=== PATIENT | male | born 1970 | race African-American/Black ===

== ENCOUNTER 2020-02-02 19:06 | Emergency (ER) | payer MEDICAID ==
[~2020-02-02] VITALS: Ht 170.2 cm; Wt 90.9 kg
[2020-02-02 19:10] VITALS: BP 118/78
[2020-02-02 20:00] LABS: ANION GAP 14 mmol/L (8-16); CARBON DIOXIDE 19 mmol/L (22-29); CHLORIDE 111 mmol/L (98-107); CREATININE 0.72 mg/dL (0.60-1.30); GLOMERULAR FILTR. RATE CALC > 60 mL/min (>60); GLUCOSE,RANDOM 94 mg/dL (70-110); POTASSIUM 3.6 mmol/L (3.5-5.1); SODIUM SERUM 144 mmol/L (136-145); UREA NITROGEN, BLOOD 8 mg/dL (7-18)
[2020-02-02 20:06] LABS: BASOPHILS % (AUTO) 0.6 % (0.0-2.0); EOSINOPHILS % (AUTO) 2.6 % (1.0-6.0); HEMATOCRIT 47.5 % (41-53); HEMOGLOBIN 16.4 g/dL (13.5-17.5); LYMPHOCYTES # (AUTO) 1.2 K/uL (1.0-4.8); MEAN CORPUSCULAR HEMOGLOBIN 34.4 pg (26.0-34.0); MEAN CORPUSCULAR HGB CONC 34.5 G/dL (31.0-37.0); MEAN CORPUSCULAR VOLUME 100 fL (80-100); MONOCYTES # (AUTO) 0.4 K/uL (0.1-1.0); MONOCYTES % (AUTO) 7.5 % (2.0-9.0); NEUTROPHILS % (AUTO) 69.3 % (40.0-70.0); RED BLOOD CELL COUNT(AUTO) 4.75 MIL/uL (4.50-5.90); RED CELL DISTRIBUTION WIDTH 16.8 % (11.5-14.5)
[2020-02-02 20:07] LABS: ALANINE AMINOTRANSFERASE 81 U/L (12-78); ALBUMIN 3.5 g/dL (3.4-5.0); ALKALINE PHOSPHATASE 165 U/L (46-116); ASPARTATE AMINOTRANSFERASE 97 U/L (15-37); BILIRUBIN,TOTAL 3.1 mg/dL (0.1-1.0); TOTAL PROTEIN, SERUM 9.1 g/dL (6.4-8.2)
[2020-02-02 21:25] LABS: PLATELET COUNT (AUTO) 64 K/uL (150-450)
== END 2020-02-03 00:43 | disposition left against medical advice (07) ==
LOC: EMS 19:06
DX: F10.129 Alcohol abuse with intoxication, unspecified (principal); Z53.21 Procedure and treatment not carried out due to patient leaving prior to being seen by health care provider
CPT/HCPCS: 36415; 80053; 85025; G0480

== ENCOUNTER 2021-02-15 09:00 | Inpatient (IN) | payer MEDICAID ==
[~2021-02-15] VITALS: Ht 170.2 cm; Wt 70.8 kg
[2021-02-15 10:34] LABS: BASOPHILS % (AUTO) 0.5 % (0.0-2.0); EOSINOPHILS % (AUTO) 2.3 % (1.0-6.0); HEMATOCRIT 30.7 % (41-53); HEMOGLOBIN 10.5 g/dL (13.5-17.5); LYMPHOCYTES # (AUTO) 0.7 K/uL (1.0-4.8); LYMPHOCYTES % (AUTO) 15.8 % (22.0-44.0); MEAN CORPUSCULAR HEMOGLOBIN 31.3 pg (26.0-34.0); MEAN CORPUSCULAR HGB CONC 34.1 G/dL (31.0-37.0); MEAN CORPUSCULAR VOLUME 92 fL (80-100); MONOCYTES # (AUTO) 0.4 K/uL (0.1-1.0); MONOCYTES % (AUTO) 9.8 % (2.0-9.0); NEUTROPHILS % (AUTO) 71.6 % (40.0-70.0); RED BLOOD CELL COUNT(AUTO) 3.35 MIL/uL (4.50-5.90); RED CELL DISTRIBUTION WIDTH 16.6 % (11.5-14.5)
[2021-02-15 10:47] LABS: ANION GAP 10 mmol/L (8-16); CALCIUM, TOTAL 8.3 mg/dL (8.8-10.5); CARBON DIOXIDE 22 mmol/L (22-29); CHLORIDE 103 mmol/L (98-107); CREATININE 0.75 mg/dL (0.60-1.30); GLOMERULAR FILTR. RATE CALC > 60 mL/min (>60); GLUCOSE,RANDOM 83 mg/dL (70-110); POTASSIUM 3.6 mmol/L (3.5-5.1); SODIUM SERUM 135 mmol/L (136-145); UREA NITROGEN, BLOOD 8 mg/dL (7-18)
[2021-02-15 10:52] LABS: ALANINE AMINOTRANSFERASE 44 U/L (12-78); ALBUMIN 2.4 g/dL (3.4-5.0); ALKALINE PHOSPHATASE 121 U/L (46-116); ASPARTATE AMINOTRANSFERASE 73 U/L (15-37); BILIRUBIN,TOTAL 2.8 mg/dL (0.1-1.0); TOTAL PROTEIN, SERUM 7.5 g/dL (6.4-8.2)
[2021-02-15 10:53] LABS: PLATELET COUNT (AUTO) 62 K/uL (150-450)
[2021-02-15 13:43] LABS: COVID AG,FIA SOURCE NASOPHARYNGEAL
[2021-02-15] MEDS ORDERED: LORazepam 2 MG TABLET PO PRN (15:45)
[2021-02-15] MEDS ORDERED: BACITRACIN 0.9 GM PACKET OINTMENT TP ONE (16:00)
[2021-02-15 20:45] VITALS: BP 130/79
[2021-02-15] MEDS ORDERED: PNEUMOCOCCAL VACCINE POLYVALENT 0.5 ML VIAL [PPSV23] IM. ONE (22:00)
[2021-02-15] MEDS: ZOLPIDEM TARTRATE 10 MG TABLET PO PRN (22:15)
[2021-02-15] MEDS: HALOPERIDOL 5 MG TABLET PO PRN (22:15)
[2021-02-16 05:44] VITALS: BP 110/68
[2021-02-16] MEDS ORDERED: PETROLATUM,WHITE 28 GM JELLY TP PRN (08:45)
[2021-02-16] MEDS ORDERED: NICOTINE 14 MG/24 HOUR PATCH TD PRN (08:45)
[2021-02-16] MEDS ORDERED: CloNIDine HCL 0.1 MG TABLET PO PRN (08:45)
[2021-02-16] MEDS ORDERED: GuaiFENesin/D-METHORPHAN [SUGAR-FREE] 200-20MG/10 ML SYRUP UDCUP PO PRN (08:45)
[2021-02-16] MEDS ORDERED: LOPERAMIDE HCL 2 MG CAPSULE PO PRN (08:45)
[2021-02-16] MEDS ORDERED: IBUPROFEN 400 MG TABLET PO PRN (08:45)
[2021-02-16] MEDS ORDERED: MAGNESIUM HYDROXIDE SUSPENSION 30 ML UDCUP PO PRN (08:45)
[2021-02-16] MEDS ORDERED: ACETAMINOPHEN 325 MG TABLET PO PRN (08:45)
[2021-02-16] MEDS ORDERED: DOCUSATE SODIUM 100 MG CAPSULE PO PRN (08:45)
[2021-02-16] MEDS ORDERED: ONDANSETRON HCL 4 MG TABLET PO PRN (08:45)
[2021-02-16] MEDS ORDERED: MAG HYDROX/AL HYDROX/SIMETH ES 30 ML SUSPENSION UDCUP PO PRN (08:45)
[2021-02-16] MEDS ORDERED: ALBUTEROL SULFATE HFA 90 MCG/PUFF 8 GM INHALER IH PRN (08:45)
[2021-02-16 09:57] VITALS: BP 121/70
[2021-02-16] MEDS ORDERED: CYANOCOBALAMIN 1,000 MCG/ML VIAL IM ONE (11:30)
[2021-02-16] MEDS ORDERED: LORazepam 2 MG TABLET PO PRN (11:30)
[2021-02-16 12:25] VITALS: BP 132/60
[2021-02-16] MEDS: FOLIC ACID 1 MG TABLET PO SCH (12:46)
[2021-02-16] MEDS: MULTIVITAMINS WITH MINERALS, THERAPEUTIC TABLET PO SCH (12:46)
[2021-02-16 13:30] VITALS: BP 119/75
[2021-02-16] MEDS ORDERED: TraMADol HCL 50 MG TABLET PO PRN (15:00)
[2021-02-16 16:35] VITALS: BP 98/55
[2021-02-16] MEDS: THIAMINE 100 MG TABLET PO SCH (17:05)
[2021-02-16] MEDS: ZOLPIDEM TARTRATE 10 MG TABLET PO PRN (20:27)
[2021-02-16] MEDS ORDERED: TiZANidine HCL 4 MG TABLET PO SCH (21:00)
[2021-02-16] MEDS: BACITRACIN 28 GM OINTMENT TP SCH (21:31)
[2021-02-17 05:18] VITALS: BP 118/67
[2021-02-17] MEDS ORDERED: LORazepam 2 MG TABLET PO PRN (07:00)
[2021-02-17 08:19] VITALS: BP 117/68
[2021-02-17 08:20] VITALS: BP 117/68
[2021-02-17] MEDS: FOLIC ACID 1 MG TABLET PO SCH (08:41)
[2021-02-17] MEDS: THIAMINE 100 MG TABLET PO SCH ×2 (08:41→16:51)
[2021-02-17] MEDS: LORazepam 2 MG TABLET PO SCH ×4 (08:41→20:12)
[2021-02-17] MEDS: BACITRACIN 28 GM OINTMENT TP SCH ×2 (08:41→16:51)
[2021-02-17] MEDS: MULTIVITAMINS WITH MINERALS, THERAPEUTIC TABLET PO SCH (08:41)
[2021-02-17 20:30] VITALS: BP 121/79
[2021-02-17] MEDS: HALOPERIDOL 5 MG TABLET PO PRN (20:38)
[2021-02-18 06:00] VITALS: BP 102/56
[2021-02-18 06:19] VITALS: BP 102/56
[2021-02-18 08:02] LABS: CHOL/HDL RATIO 1.6 (4.2-7.3); CHOLESTEROL 76 mg/dL (131-200); FREE T4 (FREE THYROXINE) 1.51 ng/dL (0.76-1.46); HDL CHOLESTEROL 47 mg/dL (40-60); THYROID STIMULATING HORMONE 3.02 uIU/mL (0.36-3.74)
[2021-02-18 08:15] LABS: LDL CHOL (CALC.) 26 mg/dL (0-130); TRIGLYCERIDES < 15 mg/dL (15-150)
[2021-02-18 08:27] VITALS: BP 102/67
[2021-02-18] MEDS: MULTIVITAMINS WITH MINERALS, THERAPEUTIC TABLET PO SCH (09:14)
[2021-02-18] MEDS: LORazepam 2 MG TABLET PO SCH ×2 (09:14→13:00)
[2021-02-18] MEDS: THIAMINE 100 MG TABLET PO SCH (09:14)
[2021-02-18] MEDS: FOLIC ACID 1 MG TABLET PO SCH (09:14)
[2021-02-18] MEDS: BACITRACIN 28 GM OINTMENT TP SCH (10:09)
[2021-02-18] MEDS ORDERED: FERROUS SULFATE 325 MG EC TABLET PO SCH (11:30)
[2021-02-19] MEDS ORDERED: LORazepam 1 MG TABLET PO PRN (07:00)
[2021-02-19] MEDS ORDERED: LORazepam 1 MG TABLET PO SCH (09:00)
[2021-02-20] MEDS ORDERED: LORazepam 1 MG TABLET PO PRN (07:00)
== END 2021-02-18 13:29 | disposition home or self-care (01) | DRG 751 ==
LOC: EMS 09:00 → B2S 14:44
DX: F29 Unspecified psychosis not due to a substance or known physiological condition (principal); D61.818 Other pancytopenia; C22.9 Malignant neoplasm of liver, not specified as primary or secondary; E44.0 Moderate protein-calorie malnutrition; R45.851 Suicidal ideations; E87.1 Hypo-osmolality and hyponatremia; D64.9 Anemia, unspecified; K70.30 Alcoholic cirrhosis of liver without ascites; B19.20 Unspecified viral hepatitis C without hepatic coma; F10.229 Alcohol dependence with intoxication, unspecified; Y90.6 Blood alcohol level of 120-199 mg/100 ml; Z20.822 Contact with and (suspected) exposure to COVID-19; Z68.24 Body mass index [BMI] 24.0-24.9, adult
CPT/HCPCS: 80053; 80061; 84439; 84443; 85025; 99285; G0480; J3420

== ENCOUNTER 2021-02-25 23:15 | Inpatient (IN) | payer MEDICAID ==
[~2021-02-25] VITALS: Ht 170.2 cm; Wt 72.3 kg
[2021-02-26 02:25] LABS: COVID AG,FIA SOURCE NASOPHARYNGEAL
[2021-02-26 02:34] LABS: BASOPHILS % (AUTO) 1.1 % (0.0-2.0); HEMATOCRIT 29.4 % (41-53); HEMOGLOBIN 9.8 g/dL (13.5-17.5); LYMPHOCYTES # (AUTO) 0.6 K/uL (1.0-4.8); LYMPHOCYTES % (AUTO) 19.1 % (22.0-44.0); MEAN CORPUSCULAR HEMOGLOBIN 30.5 pg (26.0-34.0); MEAN CORPUSCULAR HGB CONC 33.1 G/dL (31.0-37.0); MEAN CORPUSCULAR VOLUME 92 fL (80-100); MONOCYTES # (AUTO) 0.4 K/uL (0.1-1.0); MONOCYTES % (AUTO) 14.3 % (2.0-9.0); NEUTROPHILS # (AUTO) 1.9 K/uL (1.8-7.7); NEUTROPHILS % (AUTO) 61.5 % (40.0-70.0)
[2021-02-26 02:36] LABS: AMPHET/METH SCREEN,URINE POSITIVE (NEGATIVE); BARBITURATE SCREEN, URINE NEGATIVE (NEGATIVE); BENZODIAZEPINES SCREEN,URINE NEGATIVE (NEGATIVE); CANNABINOID SCREEN,URINE NEGATIVE (NEGATIVE); COCAINE SCREEN,URINE NEGATIVE (NEGATIVE); METHADONE SCREEN, URINE NEGATIVE (NEGATIVE); OPIATE SCREEN,URINE NEGATIVE (NEGATIVE)
[2021-02-26 02:40] LABS: PHENCYCLIDINE SCREEN,URINE NEGATIVE (NEGATIVE)
[2021-02-26 02:40] LABS: ANION GAP 13 mmol/L (8-16); CALCIUM, TOTAL 8.4 mg/dL (8.8-10.5); CARBON DIOXIDE 21 mmol/L (22-29); CHLORIDE 107 mmol/L (98-107); CREATININE 0.73 mg/dL (0.60-1.30); GLOMERULAR FILTR. RATE CALC > 60 mL/min (>60); GLUCOSE,RANDOM 85 mg/dL (70-110); POTASSIUM 3.3 mmol/L (3.5-5.1); SODIUM SERUM 141 mmol/L (136-145); UREA NITROGEN, BLOOD 12 mg/dL (7-18)
[2021-02-26 02:46] LABS: ALANINE AMINOTRANSFERASE 49 U/L (12-78); ALBUMIN 2.5 g/dL (3.4-5.0); ALKALINE PHOSPHATASE 148 U/L (46-116); ASPARTATE AMINOTRANSFERASE 66 U/L (15-37); BILIRUBIN,TOTAL 2.1 mg/dL (0.1-1.0); TOTAL PROTEIN, SERUM 7.6 g/dL (6.4-8.2)
[2021-02-26 02:50] LABS: PLATELET COUNT (AUTO) 54 K/uL (150-450)
[2021-02-26] MEDS ORDERED: POTASSIUM CHLORIDE 20 MEQ ER TABLET PO ONE (03:00)
[2021-02-26] MEDS: DICYCLOMINE HCL 10 MG/ML 2 ML AMP IM ONE ×2 (03:45→03:53)
[2021-02-26] MEDS ORDERED: HALOPERIDOL 5 MG TABLET PO PRN (06:15)
[2021-02-26] MEDS ORDERED: LORazepam 2 MG TABLET PO PRN (06:15)
[2021-02-26] MEDS ORDERED: ACETAMINOPHEN 325 MG TABLET PO PRN (07:30)
[2021-02-26] MEDS ORDERED: GuaiFENesin/D-METHORPHAN [SUGAR-FREE] 200-20MG/10 ML SYRUP UDCUP PO PRN (07:30)
[2021-02-26] MEDS ORDERED: ONDANSETRON HCL 4 MG TABLET PO PRN (07:30)
[2021-02-26] MEDS ORDERED: NICOTINE 14 MG/24 HOUR PATCH TD PRN (07:30)
[2021-02-26] MEDS ORDERED: MAGNESIUM HYDROXIDE SUSPENSION 30 ML UDCUP PO PRN (07:30)
[2021-02-26] MEDS ORDERED: MAG HYDROX/AL HYDROX/SIMETH ES 30 ML SUSPENSION UDCUP PO PRN (07:30)
[2021-02-26] MEDS ORDERED: CloNIDine HCL 0.1 MG TABLET PO PRN (07:30)
[2021-02-26] MEDS ORDERED: DOCUSATE SODIUM 100 MG CAPSULE PO PRN (07:30)
[2021-02-26] MEDS ORDERED: IBUPROFEN 400 MG TABLET PO PRN (07:30)
[2021-02-26] MEDS ORDERED: PETROLATUM,WHITE 28 GM JELLY TP PRN (07:30)
[2021-02-26] MEDS ORDERED: LOPERAMIDE HCL 2 MG CAPSULE PO PRN (07:30)
[2021-02-26] MEDS ORDERED: ALBUTEROL SULFATE HFA 90 MCG/PUFF 8 GM INHALER IH PRN (07:30)
[2021-02-26 08:59] VITALS: BP 103/69
[2021-02-26 09:38] VITALS: BP 103/69
[2021-02-26] MEDS ORDERED: PNEUMOCOCCAL VACCINE POLYVALENT 0.5 ML VIAL [PPSV23] IM. ONE (11:15)
[2021-02-26 16:27] VITALS: BP 18/123
[2021-02-26] MEDS: LACTULOSE 20 GM/30 ML SOLUTION UDCUP PO SCH (17:13)
[2021-02-27 00:17] VITALS: BP 117/80
[2021-02-27] MEDS: ZOLPIDEM TARTRATE 10 MG TABLET PO PRN ×2 (00:26→21:19)
[2021-02-27 06:43] LABS: HEMOGLOBIN 10.3 g/dL (13.5-17.5); LYMPHOCYTES # (AUTO) 0.5 K/uL (1.0-4.8); LYMPHOCYTES % (AUTO) 17.3 % (22.0-44.0); MEAN CORPUSCULAR HEMOGLOBIN 30.5 pg (26.0-34.0); MEAN CORPUSCULAR HGB CONC 33.1 G/dL (31.0-37.0); MEAN CORPUSCULAR VOLUME 92 fL (80-100); MONOCYTES # (AUTO) 0.3 K/uL (0.1-1.0); MONOCYTES % (AUTO) 12.2 % (2.0-9.0); NEUTROPHILS # (AUTO) 1.8 K/uL (1.8-7.7); NEUTROPHILS % (AUTO) 64.5 % (40.0-70.0); PLATELET COUNT (AUTO) 47 K/uL (150-450); RED BLOOD CELL COUNT(AUTO) 3.37 MIL/uL (4.50-5.90); RED CELL DISTRIBUTION WIDTH 16.6 % (11.5-14.5)
[2021-02-27 07:06] LABS: CHOL/HDL RATIO 1.7 (4.2-7.3); THYROID STIMULATING HORMONE 0.75 uIU/mL (0.36-3.74)
[2021-02-27 09:00] VITALS: BP 105/63
[2021-02-27] MEDS: LACTULOSE 20 GM/30 ML SOLUTION UDCUP PO SCH ×2 (09:00→16:08)
[2021-02-27 09:21] VITALS: BP 105/63
[2021-02-27 16:27] VITALS: BP 127/73
[2021-02-27 16:29] VITALS: BP 127/73
[2021-02-28] MEDS: LACTULOSE 20 GM/30 ML SOLUTION UDCUP PO SCH ×2 (09:00→16:33)
[2021-02-28 09:10] VITALS: BP 107/68
[2021-02-28 16:43] VITALS: BP 126/81
[2021-02-28] MEDS: ZOLPIDEM TARTRATE 10 MG TABLET PO PRN (20:27)
[2021-03-01 00:41] VITALS: BP 112/63
[2021-03-01] MEDS: LACTULOSE 20 GM/30 ML SOLUTION UDCUP PO SCH (09:00)
[2021-03-01] MEDS ORDERED: LACT30L PO (11:28)
== END 2021-03-01 13:54 | disposition home or self-care (01) | DRG 750 ==
LOC: EMS 23:16 → 3EI 02-26 05:00
DX: F20.9 Schizophrenia, unspecified (principal); D61.818 Other pancytopenia; C22.9 Malignant neoplasm of liver, not specified as primary or secondary; K74.60 Unspecified cirrhosis of liver; R45.850 Homicidal ideations; Z78.1 Physical restraint status; G40.89 Other seizures; E87.6 Hypokalemia; F15.10 Other stimulant abuse, uncomplicated; B19.20 Unspecified viral hepatitis C without hepatic coma; F41.9 Anxiety disorder, unspecified; Z20.822 Contact with and (suspected) exposure to COVID-19; Z91.410 Personal history of adult physical and sexual abuse
CPT/HCPCS: 71046; 80053; 80061; 84132; 84443; 85025; 99285; G0480; J0500; 36415-L1; 36415-TC